=== PATIENT | female | born 1945 | race Caucasian/White ===

== ENCOUNTER → 2019-03-14 14:40 | Outpatient (CLI) | payer OTHER, SELFPAY ==
[2019-03-07 14:15] VITALS: BMI 40.5
--- NOTE | 2019-03-14 14:41 | CDU_ITS ---
Reason For Study: carotid stenosis Rt. Velocities/BP Lt. Velocities/BP Prox CCA 72.1/16.0 cm/sec. Prox CCA 71.6/13.9 cm/sec. Mid CCA 64.3/12.1 cm/sec. Mid CCA 52.0/13.9 cm/sec. Dist CCA 70.8/13.4 cm/sec. Dist CCA 60.5/13.9 cm/sec. Prox ICA 166.8/53.5 cm/sec. Prox ICA 143.2/34.5 cm/sec. Mid ICA 183.2/49.9 cm/sec. Mid ICA 215.8/68.1 cm/sec. Dist ICA 171.9/44.6 cm/sec. Dist ICA 218.4/62.9 cm/sec. Rt. ICA/CCA = 2.8. Lt. ICA/CCA = 4.2. Prox ECA 69.5/5.6 cm/sec. Prox ECA 80.2/7.7 cm/sec. Rt. Vert. 75.3/18.2 cm/sec. Lt. Vert. 63.0/20.1 cm/sec. Right Extracranial There is intimal thickening but no significant atherosclerotic plaque noted in the right common carotid artery. There is heterogeneous, irregular atherosclerotic plaque noted in the right internal carotid artery. There is intimal thickening but no significant atherosclerotic plaque noted in the right external carotid artery. Antegrade flow is noted in the right vertebral artery. Left Extracranial There is intimal thickening but no significant atherosclerotic plaque noted in the left common carotid artery. There is heterogeneous, irregular atherosclerotic plaque noted in the left internal carotid artery. There is heterogeneous, irregular atherosclerotic plaque noted in the left external carotid artery. Antegrade flow is noted in the left vertebral artery. Procedure Carotid Duplex [id number]. The exam was diagnostic. Exam performed in department. Interpretation Summary Irregular calcific plaque at the proximal right internal carotid with 50-69% stenosis <50% stenosis right external carotid Irregular calcific plaque at the proximal left internal carotid with 50 to 69% stenosis. (approaching the 69% range) <50% stenosis left external carotid Patent, antegrade, <50% stenosis bilateral vertebrals Ordering Physician: Brady Michaels Performed By: Roman Webber RVT
== END ==
PROVIDERS: Family Provider Preventive Medicine Occupational Medicine; PCP Preventive Medicine Occupational Medicine; Referring Provider Internal Medicine Cardiovascular Disease; Visit Provider Internal Medicine Cardiovascular Disease
DX: I73.9 Peripheral vascular disease, unspecified (principal)
CPT/HCPCS: 93880

== ENCOUNTER → 2019-09-26 10:47 | Outpatient (CLI) | payer OTHER, SELFPAY ==
[2019-09-09 10:12] VITALS: BMI 41.1
--- NOTE | 2019-09-26 10:47 | ECHOD_ITS ---
Reason For Study: DYSPNEA/SOB Procedure This was a 2D Doppler, Color Flow transthoracic echocardiogram. Exam performed in department. Left Ventricle Normal LV size. Mid cavitary false tendon noted. Left ventricular systolic function is normal. The estimated ejection fraction is 55 %. Diastolic function is indeterminate. No regional wall motion abnormalities noted. Right Ventricle Normal RV size. Normal systolic function. Atria The left atrium is mildly enlarged. Normal right atrium. No doppler evidence for ASD. Mitral Valve There is no mitral annular calcification. Normal mitral valve. Trivial mitral valve insufficiency. Tricuspid Valve Normal tricuspid valve. Trivial tricuspid valve insufficiency. Aortic Valve Trisinus/trileaflet aortic valve. Mild focal aortic valve calcification. Pulmonic Valve The pulmonic valve is not well visualized. Great Vessels Normal sized aortic root. Pericardium/Pleural No pericardial effusion. MMode/2D Measurements & Calculations LVIDd: 5.6 cm IVSd: 0.94 cm Ao root diam: 2.8 cm LVIDs: 4.2 cm LVPWd: 0.96 cm RVDd: 3.0 cm FS: 24.1 % LAV(MOD-bp): 77.8 ml LA A4 area: 22.4 cm2 LA dimension(2D): 3.9 cm LAV(MOD-bp) Indexed: 36.8 ml/m2 LAV(MOD-sp2): 71.1 ml LAV(MOD-sp4): 77.4 ml RA A4 area: 13.0 cm2 Doppler Measurements & Calculations MV E max yon: 49.0 cm/sec Lat Peak E' Yon: 6.2 cm/sec Med Peak E' Yon: 4.5 cm/sec MV A max yon: 77.3 cm/sec E/E' lat: 7.9 E/E' med: 10.8 MV E/A: 0.63 Ao V2 max: 135.8 cm/sec LV V1 max: 80.8 cm/sec PA V2 max: 100.8 cm/sec Ao max P.4 mmHg LV V1 max P.6 mmHg Interpretation Summary Left ventricular systolic function is normal. The estimated ejection fraction is 55 %. Mid cavitary false tendon noted. The left atrium is mildly enlarged. Trivial mitral valve insufficiency. Trivial tricuspid valve insufficiency. Mild focal aortic valve calcification. Diastolic function is indeterminate. Ordering Physician: Fay^Beck^Marilia^^TECHNICIAN-C Referring Physician: Dieter Correa Performed By: Amy Willams, INDERJIT, RVT
== END ==
PROVIDERS: PCP Preventive Medicine Occupational Medicine; Referring Provider Nurse Practitioner Family; Visit Provider Nurse Practitioner Family
DX: I42.8 Other cardiomyopathies (principal); R06.00 Dyspnea, unspecified
CPT/HCPCS: 93306

== ENCOUNTER → 2020-03-18 12:33 | Outpatient (CLI) | payer OTHER, SELFPAY ==
[2020-03-16 10:54] VITALS: BMI 39.4
--- NOTE | 2020-03-18 12:37 | CDU_ITS ---
Reason For Study: STENOSIS Rt. Velocities/BP Lt. Velocities/BP Prox CCA 47/7 cm/sec. Prox CCA 80/13 cm/sec. Mid CCA 91/16 cm/sec. Mid CCA 98/19 cm/sec. Dist CCA 82/12 cm/sec. Dist CCA 85/19 cm/sec. Prox ICA 225/63 cm/sec. Prox ICA 202/63 cm/sec. Mid ICA 231/57 cm/sec. Mid ICA 225/63 cm/sec. Dist ICA 125/25 cm/sec. Dist ICA 277/57 cm/sec. Rt. ICA/CCA = 2.8. Lt. ICA/CCA = 3.3. Prox ECA 94/18 cm/sec. Prox ECA 122/21 cm/sec. Rt. Vert. 61/12 cm/sec. Lt. Vert. 72/25 cm/sec. Right Extracranial There is intimal thickening but no significant atherosclerotic plaque noted in the right common carotid artery. There is heterogeneous, irregular atherosclerotic plaque noted in the right internal carotid artery. There is homogeneous, smooth atherosclerotic plaque noted in the right external carotid artery. Antegrade flow is noted in the right vertebral artery. Left Extracranial There is homogeneous, smooth atherosclerotic plaque noted in the left common carotid artery. There is heterogeneous, irregular atherosclerotic plaque noted in the left internal carotid artery. There is heterogeneous, irregular atherosclerotic plaque noted in the left external carotid artery. Antegrade flow is noted in the left vertebral artery. Procedure Carotid Duplex [id number]. Interpretation Summary Moderate (50-69%) stenosis right extracranial internal carotid. Moderate (50-69%) stenosis left extracranial internal carotid. Flow within the vertebral arteries is antegrade bilaterally. Ordering Physician: Lore Silva Referring Physician: HUANG WALKER Performed By: Nicki Mendez, RDCS, RVT
== END ==
PROVIDERS: PCP Preventive Medicine Occupational Medicine; Referring Provider Physician Assistant Medical; Visit Provider Physician Assistant Medical
DX: I65.23 Occlusion and stenosis of bilateral carotid arteries (principal)
CPT/HCPCS: 93880

== ENCOUNTER 2021-05-11 12:32 | Outpatient (CLI) | payer OTHER, SELFPAY ==
--- NOTE | 2021-05-11 12:53 | CDU_ITS ---
Reason For Study: Carotid stenosis Rt. Velocities/BP Lt. Velocities/BP Prox CCA 77.3/12.1 cm/sec. Prox CCA 56.9/7.7 cm/sec. Mid CCA 66.9/16 cm/sec. Mid CCA 54.4/12.6 cm/sec. Dist CCA 57.8/12.1 cm/sec. Dist CCA 75.3/12.6 cm/sec. Prox ICA 195/42.2 cm/sec. Prox ICA 220.9/55.2 cm/sec. Mid ICA 187.3/26.7 cm/sec. Mid ICA 194.9/36.5 cm/sec. Dist ICA 101.6/27 cm/sec. Dist ICA 103.8/20.4 cm/sec. Rt. ICA/CCA = 2.91. Lt. ICA/CCA = 3.88. Prox ECA 107.3/5.6 cm/sec. Prox ECA 152.1/13.8 cm/sec. Rt. Vert. 46.5/6.9 cm/sec. Lt. Vert. 47/12.6 cm/sec. Right Extracranial There is homogeneous, smooth atherosclerotic plaque noted in the right common carotid artery. There is heterogeneous, irregular atherosclerotic plaque noted in the right internal carotid artery. There is homogeneous, smooth atherosclerotic plaque noted in the right external carotid artery. Antegrade flow is noted in the right vertebral artery. Left Extracranial There is homogeneous, irregular atherosclerotic plaque noted in the left common carotid artery. There is heterogeneous, irregular atherosclerotic plaque noted in the left internal carotid artery. The left internal carotid artery is not well visualized. There is homogeneous, smooth atherosclerotic plaque noted in the left external carotid artery. Antegrade flow is noted in the left vertebral artery. Procedure Carotid Duplex [id number]. Exam performed in department. VL/Carotid Duplex Ultrasound Interpretation Summary Moderate (50-69%) stenosis right extracranial internal carotid. Moderate (50-69 %) stenosis left extracranial internal carotid. Flow within the vertebral arteries is antegrade bilaterally. Ordering Physician: Osvaldo Carlson Referring Physician: Dieter Correa Performed By: Ailyn Valdes RVT
== END 2021-05-11 23:59 | disposition home or self-care (01) ==
LOC: CVS 12:34
PROVIDERS: PCP Preventive Medicine Occupational Medicine; Visit Provider Surgery Vascular Surgery
DX: I65.23 Occlusion and stenosis of bilateral carotid arteries (principal)
CPT/HCPCS: 93880

== ENCOUNTER → 2022-05-19 | Outpatient (CLI) | payer OTHER, SELFPAY ==
--- NOTE | 2022-05-19 13:52 | CDU_ITS ---
Reason For Study: carotid stenosis Rt. Velocities/BP Lt. Velocities/BP Prox CCA 76.8/9.7 cm/sec. Prox CCA 93.8/11.3 cm/sec. Mid CCA 78.7/13.5 cm/sec. Mid CCA 70.7/14.6 cm/sec. Dist CCA 57.9/13.5 cm/sec. Dist CCA 57.5/9.1 cm/sec. Prox ICA 119.2/24.8 cm/sec. Prox ICA 171.9/42.4 cm/sec. Mid ICA 209.2/53.3 cm/sec. Mid ICA 244.4/63.0 cm/sec. Dist ICA 169.7/24.8 cm/sec. Dist ICA 157.0/37.0 cm/sec. Rt. ICA/CCA = 2.7. Lt. ICA/CCA = 3.5. Prox ECA 81.5/7.8 cm/sec. Prox ECA 218.5/6.0 cm/sec. Rt. Vert. 36.6/8.0 cm/sec. Lt. Vert. 55.3/17.0 cm/sec. Right Extracranial There is homogeneous, smooth atherosclerotic plaque noted in the right common carotid artery. There is heterogeneous, irregular atherosclerotic plaque noted in the right internal carotid artery. There is heterogeneous, irregular atherosclerotic plaque noted in the right external carotid artery. Antegrade flow is noted in the right vertebral artery. Left Extracranial There is homogeneous, smooth atherosclerotic plaque noted in the left common carotid artery. There is heterogeneous, irregular atherosclerotic plaque noted in the left internal carotid artery. There is heterogeneous, irregular atherosclerotic plaque noted in the left external carotid artery. Antegrade flow is noted in the left vertebral artery. Procedure Carotid Duplex [id number]. This is a Carotid Duplex examination using B-mode, color flow and specral Doppler. The exam was diagnostic. Exam performed in department. Prelim called to Dr. Carlson's office. VL/Carotid Duplex Ultrasound Interpretation Summary Moderate (50-69%) stenosis right extracranial internal carotid. Moderate (50-69 %) stenosis left extracranial internal carotid. Flow within the vertebral arteries is antegrade bilaterally. Ordering Physician: Osvaldo Carlson Performed By: Roman Webber RVT
== END | disposition home or self-care (01) ==
LOC: CVS 13:50
PROVIDERS: PCP Preventive Medicine Occupational Medicine; Referring Provider Surgery Vascular Surgery; Visit Provider Surgery Vascular Surgery
DX: I65.23 Occlusion and stenosis of bilateral carotid arteries (principal)
CPT/HCPCS: 93880

== ENCOUNTER → 2024-07-05 | Outpatient (CLI) | payer BC, SELFPAY ==
--- NOTE | 2024-07-05 13:58 | CDU_ITS ---
Reason For Study Reason For Study: Stenosis Rt. Velocities/BP Lt. Velocities/BP Prox CCA 78.7/14.5 cm/sec. Prox CCA 83.3/10.2 cm/sec. Mid CCA 62.6/12.6 cm/sec. Mid CCA 49.0/0.0 cm/sec. Dist CCA 49.4/7.8 cm/sec. Dist CCA 44.6/11.7 cm/sec. Prox ICA 267.0/50.4 cm/sec. Prox ICA 288.8/76.9 cm/sec. Mid ICA 179.5/33.0 cm/sec. Mid ICA 177.8/40.4 cm/sec. Dist ICA 100.1/21.8 cm/sec. Dist ICA 93.5/17.8 cm/sec. Rt. ICA/CCA = 4.3. Lt. ICA/CCA = 5.9. Prox ECA 83.0/5.6 cm/sec. Prox ECA 123.5/0.0 cm/sec. Rt. Vert. 43.0/8.1 cm/sec. Lt. Vert. 47.9/11.7 cm/sec. Right Extracranial There is intimal thickening but no significant atherosclerotic plaque noted in the right common carotid artery. There is heterogeneous, irregular atherosclerotic plaque noted in the right internal carotid artery. The atherosclerotic plaque causes acoustic shadowing. There is intimal thickening but no significant atherosclerotic plaque noted in the right external carotid artery. Antegrade flow is noted in the right vertebral artery. Left Extracranial There is intimal thickening but no significant atherosclerotic plaque noted in the left common carotid artery. There is heterogeneous, irregular atherosclerotic plaque noted in the left internal carotid artery. The atherosclerotic plaque causes acoustic shadowing. There is heterogeneous, irregular atherosclerotic plaque noted in the left external carotid artery. Antegrade flow is noted in the left vertebral artery. Procedure Carotid Duplex [id number]. This is a Carotid Duplex examination using B-mode, color flow and specral Doppler. Exam performed in department. VL/Carotid Duplex Ultrasound Interpretation Summary Moderate (50-69%) stenosis right extracranial internal carotid. Severe (>70%) s tenosis left extracranial internal carotid. Flow within the vertebral arteries is antegrade bilaterally. Ordering Physician: Osvaldo Carlson Referring Physician: Osvaldo Carlson Performed By: Madyson Grewal RVT
== END | disposition home or self-care (01) ==
LOC: CVS 13:57
PROVIDERS: PCP Preventive Medicine Occupational Medicine; Referring Provider Surgery Vascular Surgery; Visit Provider Surgery Vascular Surgery
DX: I65.23 Occlusion and stenosis of bilateral carotid arteries (principal); I10 Essential (primary) hypertension
CPT/HCPCS: 93880